=== PATIENT | male | born 1960 | race Caucasian/White ===

== ENCOUNTER → 2018-08-11 15:13 | Outpatient (CLI) | payer BC, OTHER, SELFPAY ==
--- NOTE | 2018-08-11 15:24 | CT_ITS ---
STUDY: CT ABDOMEN WITH CONTRAST REASON FOR EXAM: Male, 58 years old. Renal cyst of right kidney, ulcerative colitis RADIATION DOSAGE (If Supplied By Facility): CTDIvol = ( 25.00 ) mGy, DLP = ( 1579.90 ) mGycm TECHNIQUE: Transaxial images were obtained post I.V. administration of 100ml IV Isovue 300, and oral contrast. Sagittal and coronal images were reconstructed. Individualized dose optimization techniques were used for this CT. COMPARISON: None. FINDINGS: The visualized lung bases are unremarkable. The visualized portions of the heart are within normal limits. Fatty changes in the liver. Normal gallbladder and extrahepatic biliary system. Normal spleen. Normal pancreas. Normal bilateral adrenal glands. Cysts up to 4.7 cm in the right kidney. There are 3-4 nonobstructive stones up to 9 mm in the right kidney. Probable 3 mm cyst in the left kidney. Normal visualized stomach. Normal visualized small intestine. Prior colonic surgery. Normal abdominal aorta. Normal inferior vena cava. Normal retroperitoneum. Normal abdominal wall. Normal osseous structures. CT/Abdomen WITH IV Contrast IMPRESSION: Fatty liver. Cysts and nonobstructive stones in the right kidney. Subcentimeter left renal cyst. Electronically Signed: Jerrod Santiago DO at 19:48 EDT Tel [phone], Service support ,
== END ==
PROVIDERS: Family Provider Internal Medicine; PCP Internal Medicine; Referring Provider Urology; Visit Provider Urology
DX: N28.1 Cyst of kidney, acquired (principal)
CPT/HCPCS: 74160; Q9967